=== PATIENT | female | born 1980 | race Caucasian/White ===

== ENCOUNTER 2023-06-12 10:06 | Emergency (ER) | payer OTHER ==
--- NOTE | 2023-06-12 10:26 | ED Physician Documentation ---
PD HPI MHE - Stated complaint Stated Complaint: SI - Chief complaint Chief Complaint: MHE - History obtained from History obtained from: Patient - History of Present Illness Primary symptom: Suicidal ideation, Depression, Anxiety. No: Suicide attempt Timing - onset: Today, Yesterday Contributing factors: Other (history of depression, anxiety, PTSD and has felt more stressd lately. Has depression with suicidal thoughts often. Has some more specific plans (driving car of road, running into traffic) currently but no actions taken. She called her therapist who directed her to come to ER for evaluation.). No: Substance abuse - ETOH, Substance abuse - drugs Similar symptoms before: Diagnosis (depression and anxiety) Recently seen: Clinic (counseling regularly.) Review of Systems Constitutional: denies: Fever, Chills Nose: denies: Rhinorrhea / runny nose, Congestion Throat: denies: Sore throat Cardiac: denies: Chest pain / pressure Respiratory: denies: Cough GI: denies: Abdominal Pain, Vomiting, Diarrhea Skin: denies: Abrasion (s), Laceration (s) Neurologic: denies: Near syncope, Headache, Head injury Psychiatric: reports: Depressed, Suicidal, Anxiety. denies: Homicidal, Hallucinations, Delusions PD PAST MEDICAL HISTORY - Past Medical History Cardiovascular: None Respiratory: None Neuro: None Endocrine/Autoimmune: None : Renal insuffiency (chronic due to lithium use in the past. Function has recovered and her Traffic Clerk says she could restart it with careful monitoring. ) Psych: Depression, Anxiety, Bipolar disorder (she states [place] was the most effective med in the past. Other mediocre improvements. ), Post traumatic stress disorder - Allergies Allergies/Adverse Reactions: Allergies Allergy/AdvReac Type Severity Reaction Status Date / Time nifedipine Allergy Rash Verified 06/12/23 10:15 PD ED PE NORMAL - Vitals Vital signs reviewed: Yes - General General: Alert and oriented X 3, Well developed/nourished, Other (tearful and crying but conversant and sharing her history freely. ) - Cardiac Cardiac: RRR, No murmur - Respiratory Respiratory: Clear bilaterally - Abdomen Abdomen: Soft, Non tender - Derm Derm: Normal color, Warm and dry - Extremities Extremities: No edema, No calf tenderness / cord - Neuro Neuro: Alert and oriented X 3, No motor deficit, Normal speech Results - Vitals Vitals: Vital Signs - 24 hr 06/12/23 06/12/23 10:09 12:32 Temperature 37.0 C Heart Rate 85 74 Respiratory 18 16 Rate Blood Pressure 154/116 H 140/90 H O2 Saturation 99 98 Oxygen O2 Source Room air - Labs Labs: Laboratory Tests 06/12/23 06/12/23 06/12/23 10:28 10:40 10:40 WBC 7.1 RBC 4.20 Hgb 12.5 Hct 37.2 MCV 88.6 MCH 29.8 MCHC 33.6 RDW 13.2 Plt Count 205 MPV 11.3 H Neut # (Auto) 4.1 Lymph # (Auto) 2.2 Perkins # (Auto) 0.6 Eos # (Auto) 0.1 Baso # (Auto) 0.0 Absolute Nucleated RBC 0.00 Nucleated RBC % 0.0 Sodium 139 Potassium 4.3 Chloride 107 Carbon Dioxide 25 Anion Gap 7.0 BUN 23 H Creatinine 1.8 H Estimated GFR (MDRD) 31 L Glucose 88 Calcium 9.3 Magnesium 2.2 Total Bilirubin 0.3 AST 14 ALT 13 Alkaline Phosphatase 39 L Total Creatine Kinase 75 Total Protein 6.8 Albumin 4.2 Globulin 2.6 Albumin/Globulin Ratio 1.6 Lipase 41 TSH 1.07 Urine Color LT. YELLOW Urine Clarity CLEAR Urine pH 7.5 Ur Specific [place] 1.010 Urine Protein NEGATIVE Urine Glucose (UA) NEGATIVE Urine Ketones NEGATIVE Urine Occult Blood NEGATIVE Urine Nitrite NEGATIVE Urine Bilirubin NEGATIVE Urine Urobilinogen 0.2 (NORMAL) Ur Leukocyte Esterase NEGATIVE Ur Microscopic Review NOT INDICATED Urine Culture Comments NOT INDICATED Salicylates < 1.5 Urine Opiates Screen NEGATIVE Ur Oxycodone Screen NEGATIVE Urine Methadone Screen NEGATIVE Ur Propoxyphene Screen NEGATIVE Acetaminophen 0.1 Ur Barbiturates Screen NEGATIVE Ur Tricyclics Screen NEGATIVE Ur Phencyclidine Scrn NEGATIVE Ur Amphetamine Screen NEGATIVE U Methamphetamines Scrn NEGATIVE U Benzodiazepines Scrn NEGATIVE Urine Cocaine Screen NEGATIVE U Cannabinoids Screen NEGATIVE Ethyl Alcohol < 10.0 SARS-CoV-2 (PCR) 06/12/23 11:17 WBC RBC Hgb Hct MCV MCH MCHC RDW Plt Count MPV Neut # (Auto) Lymph # (Auto) [place] # (Auto) Eos # (Auto) Baso # (Auto) Absolute Nucleated RBC Nucleated RBC % Sodium Potassium Chloride Carbon Dioxide Anion Gap BUN Creatinine Estimated GFR (MDRD) Glucose Calcium Magnesium Total Bilirubin AST ALT Alkaline Phosphatase Total Creatine Kinase Total Protein Albumin Globulin Albumin/Globulin Ratio Lipase TSH Urine Color Urine Clarity Urine pH Ur Specific [place] Urine Protein Urine Glucose (UA) Urine Ketones Urine Occult Blood Urine Nitrite Urine Bilirubin Urine Urobilinogen Ur Leukocyte Esterase Ur Microscopic Review Urine Culture Comments Salicylates Urine Opiates Screen Ur Oxycodone Screen Urine Methadone Screen Ur Propoxyphene Screen Acetaminophen Ur Barbiturates Screen Ur Tricyclics Screen Ur Phencyclidine Scrn Ur Amphetamine Screen U Methamphetamines Scrn U Benzodiazepines Scrn Urine Cocaine Screen U Cannabinoids Screen Ethyl Alcohol SARS-CoV-2 (PCR) NOT DETECTED PD Medical Decision Making - ED course Complexity details: reviewed results, considered differential (depression and anxiety increased recently without spcific trigger she says. Can have SW talk iwth her about options/treatment in cluding possible voluntary admission versus safety planning and seeing her own providers, etc. ), d/w patient Departure - Departure Disposition: 01 Home, Self Care Clinical Impression: Stress reaction, Depression, PTSD (post-traumatic stress disorder), Suicidal ideation Condition: Stable Record reviewed to determine appropriate education?: Yes Instructions: ED Stress React Comments: Our social workers talked with you and it sounds like your own care team has a plan in place for follow-up and you will be seeing your psychiatrist as well. It sounds like you are feeling well enough to be home at this point. Call the crisis line or your counselors as needed. Return to the ER as needed. Forms: PCP List Discharge Date/Time: 06/12/23 12:51
[2023-06-12 10:41] LABS: MUDS CUTOFF CONCENTRATIONS CUTOFF CONC BELOW:
[2023-06-12 10:44] LABS: BILIRUBIN,URINE NEGATIVE (NEGATIVE); GLUCOSE, URINE (UA) NEGATIVE (NEGATIVE); KETONES,URINE (UA) NEGATIVE (NEGATIVE); LEUKOCYTE ESTERASE, URINE NEGATIVE (NEGATIVE); NITRITE,URINE NEGATIVE (NEGATIVE); OCCULT BLOOD,URINE NEGATIVE (NEGATIVE); PH,URINE 7.5 PH (5.0-7.5); PROTEIN,URINE NEGATIVE (NEGATIVE); UROBILINOGEN,URINE 0.2 (NORMAL) E.U./dL (NORMAL)
[2023-06-12 10:45] LABS: CLARITY,URINE CLEAR (CLEAR)
[2023-06-12 10:46] LABS: BASOPHILS % (AUTO) 0.6 %; EOSINOPHILS # (AUTO) 0.1 10^3/uL (0.0-0.7); EOSINOPHILS % (AUTO) 1.1 %; HCT - HEMATOCRIT 37.2 % (37.0-47.0); HGB - HEMOGLOBIN 12.5 g/dL (12.0-16.0); LYMPHOCYTES # (AUTO) 2.2 10^3/uL (1.5-3.5); LYMPHOCYTES % (AUTO) 31.5 %; MEAN CORPUSCULAR HEMOGLOBIN 29.8 pg (27.0-31.0); MEAN CORPUSCULAR HGB CONC 33.6 g/dL (32.0-36.0); MEAN CORPUSCULAR VOLUME 88.6 fL (81.0-99.0); MEAN PLATELET VOLUME 11.3 fL (7.9-10.8); MONOCYTES # (AUTO) 0.6 10^3/uL (0.0-1.0); MONOCYTES % (AUTO) 8.5 %; NEUTROPHILS # (AUTO) 4.1 10^3/uL (1.5-6.6); PLT - PLATELET COUNT 205 10^3/uL (130-450); RED CELL DISTRIBUTION WIDTH 13.2 % (12.0-15.0); WHITE BLOOD COUNT 7.1 x10^3/uL (4.8-10.8)
[2023-06-12 10:54] LABS: AMPHETAMINE SCREEN,URINE NEGATIVE (NEGATIVE); BARBITURATE SCREEN,UR NEGATIVE (NEGATIVE); BENZODIAZEPINES SCREEN, URINE NEGATIVE (NEGATIVE); COCAINE SCREEN URINE NEGATIVE (NEGATIVE); METHADONE SCREEN, URINE NEGATIVE (NEGATIVE); METHAMPHETAMINES SCREEN, URINE NEGATIVE (NEGATIVE); OPIATE SCREEN, URINE NEGATIVE (NEGATIVE); OXYCODONE SCREEN, URINE NEGATIVE (NEGATIVE); PROPOXYPHENE SCREEN, URINE NEGATIVE (NEGATIVE); THC CANNABINOID SCREEN, URINE NEGATIVE (NEGATIVE); TRICYCLIC ANTIDEPRESSANT,URINE NEGATIVE (NEGATIVE)
[2023-06-12 11:02] LABS: ACETAMINOPHEN 0.1 ug/mL; ALBUMIN 4.2 g/dL (3.2-5.5); ALBUMIN/GLOBULIN RATIO 1.6 (1.0-2.2); ALKALINE PHOSPHATASE 39 IU/L (42-121); ALT ALANINE AMINOTRANSFERASE 13 IU/L (10-60); AST ASPARTATE AMINOTRANSFERASE 14 IU/L (10-42); BILIRUBIN,TOTAL 0.3 mg/dL (0.2-1.0); BUN - BLOOD UREA NITROGEN 23 mg/dL (6-20); CALCIUM 9.3 mg/dL (8.5-10.3); CARBON DIOXIDE - CO2 25 mmol/L (21-32); CHLORIDE 107 mmol/L (101-111); CK- CREATINE KINASE 75 IU/L (30-223); CREATININE 1.8 mg/dL (0.6-1.3); ETOH - ETHANOL < 10.0 mg/dL; GFR - MDRD 31 (>89); GLUCOSE 88 mg/dL (74-104); LIPASE 41 U/L (11-82); MAGNESIUM 2.2 mg/dL (1.7-2.3); POTASSIUM 4.3 mmol/L (3.5-4.5); SODIUM 139 mmol/L (135-145); TOTAL PROTEIN 6.8 g/dL (6.4-8.9)
[2023-06-12 11:03] LABS: SALICYLATE < 1.5 mg/dL
[2023-06-12 11:15] LABS: THYROID STIMULATING HORMONE 1.07 uIU/mL (0.34-5.60)
[2023-06-12 12:35] VITALS: BP 140/90; O2SAT 98
== END 2023-06-12 12:51 | disposition home or self-care (01) ==
LOC: ED 10:06
DX: R45.851 Suicidal ideations (principal); F32.A Depression, unspecified; F43.9 Reaction to severe stress, unspecified; F43.10 Post-traumatic stress disorder, unspecified; Z20.822 Contact with and (suspected) exposure to COVID-19
CPT/HCPCS: 36415; 80053; 80306; 80307; 80320; 80329; 81001; 81003; 82550; 83690; 83735; 84443; 85025; 87086; 99283

== ENCOUNTER 2024-02-05 12:32 | Outpatient (CLI) | payer OTHER ==
[2024-02-05 12:55] LABS: CALCIUM 9.6 mg/dL (8.5-10.3); CREATININE 1.7 mg/dL (0.6-1.3); PHOSPHORUS 3.4 mg/dL (2.5-5.0)
[2024-02-05 12:57] LABS: BILIRUBIN,URINE NEGATIVE (NEGATIVE); GLUCOSE, URINE (UA) NEGATIVE (NEGATIVE); KETONES,URINE (UA) NEGATIVE (NEGATIVE); LEUKOCYTE ESTERASE, URINE NEGATIVE (NEGATIVE); NITRITE,URINE NEGATIVE (NEGATIVE); OCCULT BLOOD,URINE NEGATIVE (NEGATIVE); PROTEIN,URINE NEGATIVE (NEGATIVE); UROBILINOGEN,URINE 0.2 (NORMAL) E.U./dL (NORMAL)
[2024-02-05 12:58] LABS: CLARITY,URINE CLEAR (CLEAR)
[2024-02-05 13:13] LABS: PROTEIN/CREATININE RATIO,URINE 0.2 (<=0.2)
[2024-02-05 13:22] LABS: BACTERIA,URINE None Seen /HPF (None Seen); RBC,URINE None Seen /HPF (0-5); SQUAMOUS EPITHELIAL CELL,UR RARE Squamous (<= Few); WBC,URINE 0-3 /HPF (0-5)
== END 2024-02-05 12:33 | disposition home or self-care (01) ==
LOC: LAB 12:32
PROVIDERS: ATTEND Internal Medicine Nephrology
DX: N18.32 Chronic kidney disease, stage 3b (principal)
CPT/HCPCS: 36415; 80069; 81001; 82570; 84156; 87086